=== PATIENT | female | born 1955 | race Two or more races ===

== ENCOUNTER 2025-06-11 15:23 | Emergency (ER) | payer MEDICARE, BC ==
[~2025-06-11] VITALS: Ht 152.4 cm; Wt 82.5 kg
--- NOTE | 2025-06-11 15:41 | ED.PDOC ---
History of Present Illness HPI Comments 69-year-old female presents to the ER with chief complaint of a fall status post visiting family in the hospital. She reports on walking down one of the hallways in a hospital when her foot slipped making her fall back at any in the posterior region of the head. Denies any other symptoms at this time. Denies LOC, chills, fever, N/V/D, SOB, CP. No other associated symptoms, modifiers, recent injuries or sick contacts present at this time. Time Seen by MD: 15:30 Reviewed Notes: Nurses Notes, Medications, Allergies Allergies: Uncoded Allergies: INHALED STEROIDS (Allergy, Unknown, 06/11/25) Information Source: Patient Mode of Arrival: Wheelchair Severity: Moderate Timing: Minutes Duration: Since onset, Minutes Prehospital treatment: None Past Medical History PAST MEDICAL HISTORY: Denies Surgical History: Denies all surgeries ARC TRIMMER History: No Pertinent ARC TRIMMER History Family History Family History: Reviewed,noncontributory to illness, Unknown Social History Smoker: Non-Smoker Alcohol: Denies ETOH Use Drugs: Denies Drug Use Lives In: Home Constitutional: denies: chills, diaphoresis, fatigue, fever, malaise, sweats, weakness, others EENTM: denies: blurred vision, double vision, ear bleeding, ear discharge, ear drainage, ear pain, ear ringing, eye pain, eye redness, hearing loss, mouth pain, mouth swelling, nasal discharge, nose bleeding, nose congestion, nose pain, photophobia, tearing, throat pain, throat swelling, voice changes, others Respiratory: denies: cough, hemoptysis, orthopnea, SOB at rest, shortness of breath, SOB with excertion, stridor, wheezing, others Cardiovascular: denies: chest pain, dizzy spells, diaphoresis, Dyspnea on exertion, edema, irregular heart beat, left arm pain, lightheadedness, palpitations, PND, syncope, others Gastrointestinal: denies: abdomen distended, abdominal pain, blood streaked bowels, constipated, diarrhea, dysphagia, difficulty swallowing, hematemesis, melena, nausea, poor appetite, poor fluid intake, rectal bleeding, rectal pain, vomiting, others Genitourinary: denies: abnormal vagina bleeding, burning, dyspareunia, dysuria, flank pain, frequency, hematuria, incontinence, pain, , vagina discharge, urgency, others Neurological: denies: dizziness, fainting, headache, left sided numbness, left sided weakness, numbness, paresthesia, pre-existing deficit, right sided numbness, right sided weakness, seizure, speech problems, tingling, tremors, we akness, others Musculoskeletal: reports: others (Posterior head pain); denies: back pain, gout, joint pain, joint swelling, muscle pain, muscle stiffness, neck pain Integumetry: denies: bruises, change in color, change in hair/nails, dryness, laceration, lesions, lumps, rash, wounds, others Allergic/Immunocompromised: denies: Difficulty Healing, Frequent Infections, Hives, Itching, others Hematologic/Lymphatic: denies: anemia, blood clots, easy bleeding, easy bruising, swollen glands, others Endocrine: denies: excessive hunger, excessive sweating, excessive thirst, excessive urination, flushing, intolerance to cold, intolerance to heat, unexplained weight gain, unexplained weight loss, others Psychiatric: denies: anxiety, bipolar disorder, depression, hopeless, panic disorder, schizophrenia, sleepless, suicidal, others All Other Systems: Reviewed and Negative Physical Exam Exam Comments Tenderness to the back of the head General Appearance: No Apparent Distress, Normal HEENT: Normal ENT Inspection, Pharynx Normal, TMs Normal Neck: Full Range of Motion, Non-Tender, Normal, Normal Inspection Respiratory: Chest Non-Tender, Lungs Clear, No Accessory Muscle Use, No Respiratory Distress, Normal Breath Sounds Cardiovascular: No Edema, No JVD, No Murmur, No Gallop, Normal Peripheral Pulses, Regular Rate/Rhythm Breast Exam: Deferred Gastrointestinal: No Organomegaly, Non Tender, No Pulsatile Mass, Normal Bowel Sounds, Soft Genitalia: Deferred Pelvic: Deferred Rectal: Deferred Extremities: No calf tenderness, Normal capillary refill, Normal inspection, Normal range of motion, Non-tender, No pedal edema Musculoskeletal : Apperance: Normal Neurologic: Alert, slasher sawyer II-XII nml as Tested, No Motor Deficits, Normal Affect, Normal Mood, No Sensory Deficits Cerebellar Function: Normal Reflexes: Normal Skin: Dry, Normal Color, Warm Lymphatic: No Adenopathy Was a procedure done? Was a procedure done?: No Differential Dx Considerations may include: Concussion, him scalp hematoma, intracranial bleed X-Ray, Labs, Meds, VS Vital Signs Date Time Temp Pulse Resp B/P (MAP) Pulse Ox O2 Delivery O2 Flow Rate FiO2 06/11/25 19:54 06/11/25 19:40 98.0 78 18 157/85 (109) 98 98.0 06/11/25 19:40 78 18 98 Room Air* 0 21 06/11/25 18:21 97.6 67 18 167/94 99 97.6 Time of 1ST Reevaluation: 16:00 Reevaluation 1ST: Unchanged Patient Education/Counseling: Diagnosis, Treatment, Prognosis Family Education/Counseling: No Family Present SEPSIS Sepsis Screen Physician Orders Head Without Contrast (06/11/25 15:41) Vital Signs Date Time Temp Pulse Resp B/P (MAP) Pulse Ox O2 Delivery O2 Flow Rate FiO2 06/11/25 19:54 06/11/25 19:40 98.0 78 18 157/85 (109) 98 98.0 06/11/25 19:40 78 18 98 Room Air* 0 21 06/11/25 18:21 97.6 67 18 167/94 99 97.6 Departure 1 Departure Time of Disposition: 07:51 (Patient had a mechanical fall. We will get a CT scan of the patient's head which fortunately was benign. And we will discharge patient home with outpatient follow up) Impression: Primary Impression: Fall Disposition: 01 HOME / SELF CARE / HOMELESS Condition: Stable Critical Care Note Critical Care Time?: No Stability Stability form required: No I personally scribed for MAHNAZ CHAPMAN MD ([email or web address]) on 06/11/25 at 15:41. Electronically submitted by Eligio Lal ([email or web address]). MAHNAZ CHAPMAN MD Jun 11, 2025 15:41
--- NOTE | 2025-06-11 18:22 | DVH ---
COMPUTERIZED TOMOGRAPHY OF THE HEAD WITHOUT CONTRAST REASON FOR STUDY: fall with headstrike COMPARISON: None TECHNIQUE: Helical tomographic scans were obtained through the brain. 2-D coronal and sagittal reformatted images are provided. Radiation optimization: All CT scans at this facility use at least one of these dose optimization techniques: Automated exposure control mA and/or kV adjustment per patient size (includes targeted exams where dose is matched to clinical indication) or iterative reconstruction. RADIATION DOSE: CTDI: 52 mGy DLP: 938 mGy-cm FINDINGS: No suspicious intracranial hyperdensity to suggest acute blood. There is no mass effect nor midline shift. There is moderate generalized volume loss with compensatory enlargement of the CSF spaces. There is no hydrocephalus. The suprasellar cistern is intact. There are scattered periventricular and deep white matter hypodensities that are most consistent with chronic microangiopathic changes. The calvarium is intact. The visualized mastoid air cells and paranasal sinuses are clear. There is mild right frontal scalp swelling. IMPRESSION: No acute intracranial abnormality. Mild right frontal scalp swelling. Moderate generalized volume loss with chronic small vessel ischemic change.
[2025-06-11 19:40] VITALS: BP_DIAS 85; PULSE 78; RESP 18; O2SAT 98
[2025-06-11 19:54] VITALS: BP_SYST 161
--- NOTE | 2025-06-11 19:54 | RESUS ---
CODE ASSIST ASSESSSMENT Initial Information Code Assist Date: Jun 11, 2025 Code Assist Time: 15:02 Location of Arrest: Central Room # outside of room 207 in hallway Crash Cart Opened and Supplies: No Situation Situation comment: visitor for room 295-B fell in hallway in front of room 207 Background Background: donald has history of falls thisb year - july, and this occurrence Assessment Blood Pressure Systolic: 161 Blood Pressure Diastolic: 94 Respiratory Rate: 18 O2 Sat by Pulse Oximetry: 99 Bedside Blood Glucose: 97 Assessment comment: Patient states that she 'tripped over her foot" Recommendations/Interventions Procedures: Accu check Outcome Outcome: Other Follow up Report Follow up Report Patient transferred to transfer board per log roll keeping cervical precautions in place. Large bruised lump size of golfball noted to anterior forehead. Patient transported to ER per stretcher on transfer board. Patient alert and orient x 4 and able to move all extremities, denies VALLE, dizziness or BV. Team Members Team Members Kiara ANDRES MST, Carmelina ANDRES MST, Shahida Treadwell RN - house sup, Adrienne Mendez RN - ICU charge, Bailee Serrano RN, ICU resource, Adiel RN MST credit report checker, Alden MST dry charge process attendant Shahida Ching Jun 11, 2025 19:54
== END 2025-06-11 19:48 | disposition home or self-care (01) ==
LOC: ER 15:23
DX: R51.9 Headache, unspecified (principal); W18.30XA Fall on same level, unspecified, initial encounter; Y93.89 Activity, other specified; Y92.89 Other specified places as the place of occurrence of the external cause; Y99.8 Other external cause status
CPT/HCPCS: 70450; 92950